=== PATIENT | male | born 1995 | race Caucasian/White ===

== ENCOUNTER 2017-01-07 15:39 | Emergency (ER) | payer BC ==
[2017-01-07 15:50] VITALS: BP 127/63
--- NOTE | 2017-01-07 15:59 | UC ---
Skin Complaint HPI - HPI Summary HPI Summary: C/O skin rash extending up left side. Started left ankle and got better with steroid cream. Not responding to steriod cream. Worse since mid November. Extending up legs to abdomen and arms. - History of Current Complaint Chief Complaint: UCSkin Time Seen by Provider: 01/07/17 15:51 Stated Complaint: RASH LEG Hx Obtained From: Patient Onset/Duration: Gradual Onset, Lasting Weeks - 6, Worse Since - in the past 2 weeks. Onset Severity: Mild Current Severity: Moderate Location: Diffuse, Discrete - left ankle. Character: Pruritus, Redness - papules Aggravating Factor(s): Touch Alleviating Factor(s): Nothing Associated Signs & Symptoms: Positive: Rash. Negative: Fever, Chills, Cough - Allergy/Home Medications Allergies/Adverse Reactions: Allergies Allergy/AdvReac Type Severity Reaction Status Date / Time No Known Allergies Allergy Verified 01/07/17 15:50 Home Medications: Home Medications Cetirizine HCl [Zyrtec Allergy 10 MG TAB] 10 mg PO DAILY 01/07/17 [History Confirmed 01/07/17] Ibuprofen TAB* [Advil TAB*] 400 mg PO Q6H PRN 01/07/17 [History Confirmed ] Review of Systems Skin: Rash Is Patient Immunocompromised?: No All Other Systems Reviewed And Are Negative: Yes PMH/Surg Hx/FS Hx/Imm Hx Previously Healthy: Yes - Surgical History Surgical History: None - Family History Known Family History: Positive: Unknown - adopted - Social History Occupation: Student Lives: Dormitory/Roommates Alcohol Use: Occasionally Substance Use Type: None Smoking Status (MU): Never Smoked Tobacco Have You Smoked in the Last Year: No Physical Exam Triage Information Reviewed: Yes Appearance: Well-Appearing, No Pain Distress, Well-Nourished Vital Signs: Initial Vital Signs Temp 98.2 F 01/07/17 15:44 Pulse 67 01/07/17 15:44 Resp 16 01/07/17 15:44 BP 127/63 01/07/17 15:44 Pulse Ox 100 01/07/17 15:44 Vital Signs Reviewed: Yes Eyes: Positive: Conjunctiva Clear Neck exam: Normal Respiratory Exam: Normal Cardiovascular Exam: Normal Musculoskeletal Exam: Normal Neurological Exam: Normal Psychological Exam: Normal Skin: Positive: rashes - diffuse maculopapular erythematous eruption over the anterior legs, abdomen and upper arms. Plaque over left medial maleolus with raised edges. Course/Dx - Differential Diagnoses - Skin Complaint Differential Diagnoses: Contact Dermatitis, Eczema, Viral Exanthem - Diagnoses Provider Diagnoses: Dermatitis unknown cause. Discharge - Discharge Plan Condition: Stable Disposition: HOME Patient Education Materials: Dermatitis (ED), Acute Rash (ED) Additional Instructions: Follow up with Operations Examiner on Sunday. You can add benedryl to the cetirizine. Stop the steroid cream. Images Front/Back of Body, Lg ([place]): 1 - plaque on ankle.
== END 2017-01-07 16:25 | disposition home or self-care (01) ==
LOC: UCCORT 15:39
DX: L30.9 Dermatitis, unspecified (principal)
CPT/HCPCS: 99201; G0463